=== PATIENT | male | born 2000 | race African-American/Black ===

== ENCOUNTER 2021-08-13 14:02 | Inpatient (IN) | payer MEDICARE, OTHER ==
[~2021-08-13] VITALS: Ht 185.4 cm; Wt 155.7 kg
[2021-08-13] MEDS ORDERED: IV NORMAL SALINE 1000ML BAG 1,000 ML IV ONE ×4 (15:00→18:15)
--- NOTE | 2021-08-13 15:08 | RAD ---
EXAM: CHEST ONE VIEW. HISTORY: Chest pain. COMPARISON: None. FINDINGS: A frontal view of the chest is obtained. There are no confluent infiltrates. There is no pneumothorax or pleural effusion. The heart is not en larged. IMPRESSION: 1. No confluent infiltrates. Electronically signed by: Ele Fitzpatrick MD (08/13/2021 3:06 PM) [id number]
[2021-08-13 15:42] LABS: BASO # 0.1 x10^3/uL (0.0-0.2); BASO % 1 % (0-3); EOS % 0 % (0-3); HEMATOCRIT 50.3 % (39.0-53.0); LYMPH # 1.3 x10^3/uL (1.0-4.8); LYMPH % 14 % (24-48); MEAN CORPUSCULAR HEMOGLOBIN 31 pg (25-35); MEAN CORPUSCULAR HGB CONC 34 g/dL (31-37); MEAN CORPUSCULAR VOLUME 93 fL (79-100); MONO # 0.8 x10^3/uL (0.0-1.1); MONO % 8 % (0-9); NEUT # 7.3 x10^3/uL (1.8-7.7); NEUT % 77 % (31-73); PLATELET COUNT 184 x10^3/uL (140-400); RED BLOOD COUNT 5.42 x10^6/uL (4.30-5.70); RED CELL DISTRIBUTION WIDTH 13.6 % (11.5-14.5); WHITE BLOOD COUNT 9.5 x10^3/uL (4.0-11.0)
[2021-08-13 15:52] LABS: BARBITURATES NEG (NEG); BENZODIAZEPINES NEG (NEG); CANNABINOIDS NEG (NEG); COCAINE NEG (NEG); METHADONE NEG (NEG); OPIATES NEG (NEG); PHENCYCLIDINE NEG (NEG)
--- NOTE | 2021-08-13 15:54 | EKG ---
[facility] [address] [place] [address] Test Date: 2021-08-13 Test Time: 15:30:41 Pat Name: KATIE JACOBSON Department: Room: Gender: M Keg Varnisher: : 2000 Requested By: ROGER CASE Order Number: [id number] Reading MD: Aram Mack Measurements Intervals [place] Rate: 90 P: 38 VA: 126 QRS: 3 QRSD: 82 T: 2 QT: 328 QTc: 405 Interpretive Statements SINUS RHYTHM NORMAL ECG RI6.01 No previous ECG available for comparison Electronically Signed On 08-17-2021 21:42:51 CDT by Aram Mack
[2021-08-13 16:01] LABS: AMPHETAMINE/METHAMPHETAMINE NEG (NEG)
[2021-08-13 16:02] LABS: CALCIUM 9.3 mg/dL (8.5-10.1); CREATININE 1.1 mg/dL (0.7-1.3); GFR 101.3; POTASSIUM 4.1 mmol/L (3.5-5.1)
[2021-08-13 16:02] LABS: BACTERIA,URINE 0 /HPF (0-FEW); RBC,URINE OCC /HPF (0-2); WBC,URINE 0 /HPF (0-4)
[2021-08-13 16:16] LABS: ALBUMIN 4.4 g/dL (3.4-5.0); ALBUMIN/GLOBULIN RATIO 1.2 (1.0-1.7); TOTAL BILIRUBIN 0.9 mg/dL (0.2-1.0)
--- NOTE | 2021-08-13 17:53 | PHYS DOC ---
Past Medical History Past Surgical History: No Surgical History Smoking Status: Never Smoker Alcohol Use: Occasionally General Adult EDM: Chief Complaint: OTHER COMPLAINTS HPI: HPI: Patient is a 20 year old male with no significant medical history presented to the ED today complaining of bilateral biceps pain, symptoms began on Thursday afte r having an extensive workout session. Patient states he typically does not workout, but on Thursday he had his friend die designer workout with him and did extensive biceps and triceps work out session. He states since then he has had severe muscle pain specifically to his biceps. Review of Systems: Review of Systems: Constitutional: Denies fever or chills. [] Eyes: Denies change in visual acuity. [] HENT: Denies nasal congestion or sore throat. [] Respiratory: Denies cough or shortness of breath. [] Cardiovascular: Denies chest pain or edema. [] GI: Denies abdominal pain, nausea, vomiting, bloody stools or diarrhea. [] : Denies dysuria. [] Musculoskeletal: Reports bilateral biceps pain. Denies back pain Integument: Denies rash. [] Neurologic: Denies headache, focal weakness or sensory changes. [] Psychiatric: Denies depression or anxiety. [] Heart Score: C/O Chest Pain: N/A (UA gets better every time I listened Ceccas is a chances she has not been anywhere please will start with a test) Risk Factors: Risk Factors: DM, Current or recent (<one month) smoker, HTN, HLP, family history of CAD, obesity. Risk Scores: Score 0 - 3: 2.5% MACE over next 6 weeks - Discharge Home Score 4 - 6: 20.3% MACE over next 6 weeks - Admit for Clinical Observation Score 7 - 10: 72.7% MACE over next 6 weeks - Early Invasive Strategies Current Medications: Current Medications Medications (Trade) Dose Ordered Sig/Bairon Start Time Stop Time Status Last Admin Dose Admin Sodium Chloride 1,000 ml @ 1,000 mls/hr 1X ONCE 08/13/21 17:30 08/13/21 18:29 08/13/21 17:45 1,000 MLS/HR Allergies: Allergies: Allergies Coded Allergies Type Severity Reaction Last Updated Verified No Known Drug Allergies 08/13/21 No Physical Exam: PE: Constitutional: Obese patient, no acute distress, non-toxic appearance. [] HENT: Normocephalic, atraumatic, bilateral external ears normal, oropharynx moist, no oral exudates, nose normal. [] Eyes: PERRLA, EOMI, conjunctiva normal, no discharge. [] Neck: Normal range of motion, no tenderness, supple, no stridor. [] Cardiovascular:Heart rate regular rhythm, no murmur [] Lungs & Thorax: Bilateral breath sounds clear to auscultation [] Abdomen: Bowel sounds normal, soft, no tenderness, no masses, no pulsatile masses. [] Skin: Warm, dry, no erythema, no rash. [] Back: No tenderness, no CVA tenderness. [] Extremities: Bilateral biceps are tight on exam, no cyanosis, no clubbing, ROM intact, no edema. +2 bilateral upper extremity radial pulses Neurologic: Alert and oriented X 3, normal motor function, normal sensory function, no focal deficits noted. [] Psychologic: Affect normal, judgement normal, mood normal. [] Current Patient Data: Labs: Laboratory Tests Test 08/13/21 15:00 08/13/21 15:30 Urine Color (Auto) Yellow Urine Turbidity Clear Urine pH (Auto) 5.5 (<5.0-8.0) Urine Specific [place] 1.028 (1.000-1.030) Urine Protein (Auto) 50 mg/dL (Negative) Urine Glucose (Auto)(UA) Negative mg/dL (Negative) Urine Ketones (Auto) Negative mg/dL (Negative) Urine Blood (Auto) Large (Negative) Urine Nitrite Negative (Negative) Urine Bilirubin (Auto) Negative (Negative) Urine Urobilinogen (Auto) Normal mg/dL (Normal) Urine Leukocyte Esterase (Auto) Negative (Negative) Urine RBC Occ /HPF (0-2) Urine WBC 0 /HPF (0-4) Urine Bacteria 0 /HPF (0-FEW) Urine Mucus Mod /LPF Urine Opiates Screen Neg (NEG) Urine Methadone Screen Neg (NEG) Urine Barbiturates Neg (NEG) Urine Phencyclidine Screen Neg (NEG) Urine Amphetamine/Methamphetamine Neg (NEG) Urine Benzodiazepines Screen Neg (NEG) Urine Cocaine Screen Neg (NEG) Urine Cannabinoids Screen Neg (NEG) Urine Ethyl Alcohol Neg (NEG) White Blood Count 9.5 x10^3/uL (4.0-11.0) Red Blood Count 5.42 x10^6/uL (4.30-5.70) Hemoglobin 17.0 g/dL (13.0-17.5) Hematocrit 50.3 % (39.0-53.0) Mean Corpuscular Volume 93 fL (79-100) Mean Corpuscular Hemoglobin 31 pg (25-35) Mean Corpuscular Hemoglobin Concent 34 g/dL (31-37) Red Cell Distribution Width 13.6 % (11.5-14.5) Platelet Count 184 x10^3/uL (140-400) Neutrophils (%) (Auto) 77 % (31-73) H Lymphocytes (%) (Auto) 14 % (24-48) L Monocytes (%) (Auto) 8 % (0-9) Eosinophils (%) (Auto) 0 % (0-3) Basophils (%) (Auto) 1 % (0-3) Neutrophils # (Auto) 7.3 x10^3/uL (1.8-7.7) Lymphocytes # (Auto) 1.3 x10^3/uL (1.0-4.8) Monocytes # (Auto) 0.8 x10^3/uL (0.0-1.1) Eosinophils # (Auto) 0.0 x10^3/uL (0.0-0.7) Basophils # (Auto) 0.1 x10^3/uL (0.0-0.2) Sodium Level 141 mmol/L (136-145) Potassium Level 4.1 mmol/L (3.5-5.1) Chloride Level 103 mmol/L (98-107) Carbon Dioxide Level 26 mmol/L (21-32) Anion Gap 12 (6-14) Blood Urea Nitrogen 11 mg/dL (8-26) Creatinine 1.1 mg/dL (0.7-1.3) Estimated GFR (Cockcroft-Gault) 101.3 BUN/Creatinine Ratio 10 (6-20) Glucose Level 94 mg/dL (70-99) Calcium Level 9.3 mg/dL (8.5-10.1) Magnesium Level 2.0 mg/dL (1.8-2.4) Total Bilirubin 0.9 mg/dL (0.2-1.0) Aspartate Amino Transferase (AST) 974 U/L (15-37) H Alanine Aminotransferase (ALT) 337 U/L (16-63) H Alkaline Phosphatase 58 U/L (46-116) Creatine Kinase 77001 U/L (39-308) H Creatine Kinase MB (Mass) 7.3 ng/mL (0.0-3.6) H Creatine Kinase MB Relative Index 0.0 % (0-4) Troponin I High Sensitivity 34 ng/L (4-75) Total Protein 8.0 g/dL (6.4-8.2) Albumin 4.4 g/dL (3.4-5.0) Albumin/Globulin Ratio 1.2 (1.0-1.7) Laboratory Tests 08/13/21 15:30 Laboratory Tests 08/13/21 15:30 Vital Signs: Vital Signs Date Time Temp Pulse Resp B/P (MAP) Pulse Ox O2 Delivery O2 Flow Rate FiO2 08/13/21 14:56 98.0 103 18 174/102 (126) 97 Room Air 98.0 EKG: EKG: EKG interpreted by Dr. Tovar sinus rhythm heart rate 90 no STEMI [] Radiology/Procedures: Radiology/Procedures: []PROCEDURE: PORTABLE CHEST 1V EXAM: CHEST ONE VIEW. HISTORY: Chest pain. COMPARISON: None. FINDINGS: A frontal view of the chest is obtained. There are no confluent infiltrates. There is no pneumothorax or pleural effusion. The heart is not enlarged. IMPRESSION: 1. No confluent infiltrates. Electronically signed by: Ele Fitzpatrick MD (08/13/2021 3:06 PM) [id number] DICTATED and SIGNED BY: HIRAM FITZPATRICK MD DATE: 08/13/21 1505 Course & Med Decision Making: Course & Med Decision Making Pertinent Labs and Imaging studies reviewed. (See chart for details) This a 20-year-old male patient presented to the ED today complaining of bilateral biceps pain, symptoms began Thursday after doing an extensive workout session. Vitals on arrival to the ED temperature 98.0 heart rate 103 respiration 18 on r oom air, blood pressure 174/102, O2 sats 97%. CBC with no acute findings, CMP with AST of 974, ALT 337, ALK 58. CK 61,416 Patient was given IV fluids in the ED. Admitted with more IV fluids. Spoke with Dr. Gomez who accepted patient for admission Tenzin Disclaimer: Tenzin Disclaimer: This electronic medical record was generated, in whole or in part, using a voice recognition dictation system. Departure Departure Impression: Primary Impression: Rhabdomyolysis Qualified Codes: M62.82 - Rhabdomyolysis Disposition: ADMITTED INPATIENT Condition: STABLE Referrals: NO PCP (PCP) ROGER CASE APRN Aug 13, 2021 17:52
[2021-08-13] MEDS ORDERED: ACETAMINOPHEN 325 MG TABLET. PO PRN ×2 (18:15→19:30)
[2021-08-13] MEDS ORDERED: MORPHINE SULFATE 2 MG/ML INJ. IVP PRN (18:15)
[2021-08-13] MEDS ORDERED: ONDANSETRON PF 4 MG/2 ML VIAL. IVP PRN ×2 (18:15→19:30)
[2021-08-13 19:00] VITALS: BP 165/103
--- NOTE | 2021-08-13 19:27 | PDOC1 ---
History and Physical Date of Admission Date of Admission DATE: 08/13/21 TIME: 19:15 Identification/Chief Complaint Chief Complaint Rhabdomyolysis Source Source: Patient History of Present Illness History of Present Illness Patient is a 20-year-old male with no significant past medical history, who presents to the ED with complaints of bilateral arm pain. Patient is a rather large individual, and on Thursday began aggressively working out after not having any prior baseline for physical activity. Eventually he was evaluated at a urgent care clinic, who sent him to the ER for concerns of rhabdomyolysis. Labs here showed AST 1974, ALT 337, CK 61,416. He received 3 L of IV fluids in the ED. Will admit patient for further medical management. Past Medical History Past Medical History Vitiligo Past Surgical History Past Surgical History: No pertinent history Family History Family History: Coronary Artery Disease Social History Smoke: No ALCOHOL: occassional Drugs: None Current Problem List Problem List Problems Medical Problems: (1) Rhabdomyolysis Status: Acute Current Medications Current Medications Current Medications Sodium Chloride 1,000 ml @ 1,000 mls/hr 1X ONCE IV Last administered on 08/13/21at 15:30; Start 08/13/21 at 15:00; Stop 08/13/21 at 15:59; Status DC Sodium Chloride 1,000 ml @ 1,000 mls/hr 1X ONCE IV Last administered on 08/13/21at 17:45; Start 08/13/21 at 17:30; Stop 08/13/21 at 18:29; Status DC Sodium Chloride 1,000 ml @ 1,000 mls/hr 1X ONCE IV Last administered on 08/13/21at 17:45; Start 08/13/21 at 17:30; Stop 08/13/21 at 18:29; Status DC Ondansetron HCl (Zofran) 4 mg PRN Q8HRS PRN IVP NAUSEA/VOMITING; Start 08/13/21 at 18:15; Stop 08/14/21 at 18:14 Morphine Sulfate (Morphine Sulfate) 2 mg PRN Q2HR PRN IVP PAIN; Start 08/13/21 at 18:15; Stop 08/14/21 at 18:14 Acetaminophen (Tylenol) 650 mg PRN Q4HRS PRN PO FEVER > 100.3'F; Start 08/13/21 at 18:15; Stop 08/14/21 at 18:14 Sodium Chloride 1,000 ml @ 125 mls/hr 1X ONCE IV ; Start 08/13/21 at 18:15; Stop 08/14/21 at 02:14 Allergies Allergies: Coded Allergies: No Known Drug Allergies (Unverified , 08/13/21) ROS Review of System GENERAL: No history of weight change, weakness or fevers. SKIN: No bruising, hair changes or rashes. EYES: No blurred, double or loss of vision. NOSE AND THROAT: No history of nosebleeds, hoarseness or sore throat. HEART: Denies chest pain, denies palpitations. LUNGS: Denies cough, hemoptysis, wheezing or shortness of breath. GASTROINTESTINAL: Denies nausea, vomiting, abdominal pain. GENITOURINARY: Denies dysuria, frequency, urgency, hematuria. NEUROLOGIC: Denies history of numbness, tingling, tremor or weakness. PSYCHIATRIC: Denies anxiety, denies depression. ENDOCRINE: No history of heat or cold intolerance, polyuria or polydipsia. EXTREMITIES: Bilateral upper extremity pain and weakness. Denies joint pain, pain on walking or stiffness. Physical Exam Physical Exam General: Alert, Oriented X3, Cooperative, No acute distress. Morbidly obese. HEENT: PERRLA, EOMI Lungs: Clear to auscultation, Normal air movement Heart: RRR, no murmurs Cardiovascular: S1, S2 Abdomen: Normal bowel sounds, Soft, No tenderness Extremities: No clubbing, No cyanosis Skin: No rashes, No significant lesion Neuro: Normal speech, Normal tone, Sensation intact Psych/Mental Status: Mental status NL, Mood NL Vitals Vitals Vital Signs Date Time Temp Pulse Resp B/P (MAP) Pulse Ox O2 Delivery O2 Flow Rate FiO2 08/13/21 17:43 94 171/100 (123) 99 Room Air 08/13/21 14:56 98.0 18 98.0 Labs Labs Laboratory Tests Test 08/13/21 15:00 08/13/21 15:30 Urine Color (Auto) Yellow Urine Turbidity Clear Urine pH (Auto) 5.5 (<5.0-8.0) Urine Specific [place] 1.028 (1.000-1.030) Urine Protein (Auto) 50 mg/dL (Negative) Urine Glucose (Auto)(UA) Negative mg/dL (Negative) Urine Ketones (Auto) Negative mg/dL (Negative) Urine Blood (Auto) Large (Negative) Urine Nitrite Negative (Negative) Urine Bilirubin (Auto) Negative (Negative) Urine Urobilinogen (Auto) Normal mg/dL (Normal) Urine Leukocyte Esterase (Auto) Negative (Negative) Urine RBC Occ /HPF (0-2) Urine WBC 0 /HPF (0-4) Urine Bacteria 0 /HPF (0-FEW) Urine Mucus Mod /LPF Urine Opiates Screen Neg (NEG) Urine Methadone Screen Neg (NEG) Urine Barbiturates Neg (NEG) Urine Phencyclidine Screen Neg (NEG) Urine Amphetamine/Methamphetamine Neg (NEG) Urine Benzodiazepines Screen Neg (NEG) Urine Cocaine Screen Neg (NEG) Urine Cannabinoids Screen Neg (NEG) Urine Ethyl Alcohol Neg (NEG) White Blood Count 9.5 x10^3/uL (4.0-11.0) Red Blood Count 5.42 x10^6/uL (4.30-5.70) Hemoglobin 17.0 g/dL (13.0-17.5) Hematocrit 50.3 % (39.0-53.0) Mean Corpuscular Volume 93 fL (79-100) Mean Corpuscular Hemoglobin 31 pg (25-35) Mean Corpuscular Hemoglobin Concent 34 g/dL (31-37) Red Cell Distribution Width 13.6 % (11.5-14.5) Platelet Count 184 x10^3/uL (140-400) Neutrophils (%) (Auto) 77 % (31-73) Lymphocytes (%) (Auto) 14 % (24-48) Monocytes (%) (Auto) 8 % (0-9) Eosinophils (%) (Auto) 0 % (0-3) Basophils (%) (Auto) 1 % (0-3) Neutrophils # (Auto) 7.3 x10^3/uL (1.8-7.7) Lymphocytes # (Auto) 1.3 x10^3/uL (1.0-4.8) Monocytes # (Auto) 0.8 x10^3/uL (0.0-1.1) Eosinophils # (Auto) 0.0 x10^3/uL (0.0-0.7) Basophils # (Auto) 0.1 x10^3/uL (0.0-0.2) Sodium Level 141 mmol/L (136-145) Potassium Level 4.1 mmol/L (3.5-5.1) Chloride Level 103 mmol/L (98-107) Carbon Dioxide Level 26 mmol/L (21-32) Anion Gap 12 (6-14) Blood Urea Nitrogen 11 mg/dL (8-26) Creatinine 1.1 mg/dL (0.7-1.3) Estimated GFR (Cockcroft-Gault) 101.3 BUN/Creatinine Ratio 10 (6-20) Glucose Level 94 mg/dL (70-99) Calcium Level 9.3 mg/dL (8.5-10.1) Magnesium Level 2.0 mg/dL (1.8-2.4) Total Bilirubin 0.9 mg/dL (0.2-1.0) Aspartate Amino Transf (AST/SGOT) 974 U/L (15-37) Alanine Aminotransferase (ALT/SGPT) 337 U/L (16-63) Alkaline Phosphatase 58 U/L (46-116) Creatine Kinase 91947 U/L (39-308) Creatine Kinase MB (Mass) 7.3 ng/mL (0.0-3.6) Creatine Kinase MB Relative Index 0.0 % (0-4) Troponin I High Sensitivity 34 ng/L (4-75) Total Protein 8.0 g/dL (6.4-8.2) Albumin 4.4 g/dL (3.4-5.0) Albumin/Globulin Ratio 1.2 (1.0-1.7) Laboratory Tests Test 08/13/21 15:00 08/13/21 15:30 Urine Color (Auto) Yellow Urine Turbidity Clear Urine pH (Auto) 5.5 (<5.0-8.0) Urine Specific [place] 1.028 (1.000-1.030) Urine Protein (Auto) 50 mg/dL (Negative) Urine Glucose (Auto)(UA) Negative mg/dL (Negative) Urine Ketones (Auto) Negative mg/dL (Negative) Urine Blood (Auto) Large (Negative) Urine Nitrite Negative (Negative) Urine Bilirubin (Auto) Negative (Negative) Urine Urobilinogen (Auto) Normal mg/dL (Normal) Urine Leukocyte Esterase (Auto) Negative (Negative) Urine RBC Occ /HPF (0-2) Urine WBC 0 /HPF (0-4) Urine Bacteria 0 /HPF (0-FEW) Urine Mucus Mod /LPF Urine Opiates Screen Neg (NEG) Urine Methadone Screen Neg (NEG) Urine Barbiturates Neg (NEG) Urine Phencyclidine Screen Neg (NEG) Urine Amphetamine/Methamphetamine Neg (NEG) Urine Benzodiazepines Screen Neg (NEG) Urine Cocaine Screen Neg (NEG) Urine Cannabinoids Screen Neg (NEG) Urine Ethyl Alcohol Neg (NEG) White Blood Count 9.5 x10^3/uL (4.0-11.0) Red Blood Count 5.42 x10^6/uL (4.30-5.70) Hemoglobin 17.0 g/dL (13.0-17.5) Hematocrit 50.3 % (39.0-53.0) Mean Corpuscular Volume 93 fL (79-100) Mean Corpuscular Hemoglobin 31 pg (25-35) Mean Corpuscular Hemoglobin Concent 34 g/dL (31-37) Red Cell Distribution Width 13.6 % (11.5-14.5) Platelet Count 184 x10^3/uL (140-400) Neutrophils (%) (Auto) 77 % (31-73) Lymphocytes (%) (Auto) 14 % (24-48) Monocytes (%) (Auto) 8 % (0-9) Eosinophils (%) (Auto) 0 % (0-3) Basophils (%) (Auto) 1 % (0-3) Neutrophils # (Auto) 7.3 x10^3/uL (1.8-7.7) Lymphocytes # (Auto) 1.3 x10^3/uL (1.0-4.8) Monocytes # (Auto) 0.8 x10^3/uL (0.0-1.1) Eosinophils # (Auto) 0.0 x10^3/uL (0.0-0.7) Basophils # (Auto) 0.1 x10^3/uL (0.0-0.2) Sodium Level 141 mmol/L (136-145) Potassium Level 4.1 mmol/L (3.5-5.1) Chloride Level 103 mmol/L (98-107) Carbon Dioxide Level 26 mmol/L (21-32) Anion Gap 12 (6-14) Blood Urea Nitrogen 11 mg/dL (8-26) Creatinine 1.1 mg/dL (0.7-1.3) Estimated GFR (Cockcroft-Gault) 101.3 BUN/Creatinine Ratio 10 (6-20) Glucose Level 94 mg/dL (70-99) Calcium Level 9.3 mg/dL (8.5-10.1) Magnesium Level 2.0 mg/dL (1.8-2.4) Total Bilirubin 0.9 mg/dL (0.2-1.0) Aspartate Amino Transf (AST/SGOT) 974 U/L (15-37) Alanine Aminotransferase (ALT/SGPT) 337 U/L (16-63) Alkaline Phosphatase 58 U/L (46-116) Creatine Kinase 01353 U/L (39-308) Creatine Kinase MB (Mass) 7.3 ng/mL (0.0-3.6) Creatine Kinase MB Relative Index 0.0 % (0-4) Troponin I High Sensitivity 34 ng/L (4-75) Total Protein 8.0 g/dL (6.4-8.2) Albumin 4.4 g/dL (3.4-5.0) Albumin/Globulin Ratio 1.2 (1.0-1.7) Images Images PATIENT: KATIE JACOBSON ACCOUNT: [id number] : 2000 LOCATION: ER AGE: 20 SEX: M EXAM STATUS: REG ER ORD. PHYSICIAN: ROGER CASE APRN REASON: muscle pain PROCEDURE: PORTABLE CHEST 1V EXAM: CHEST ONE VIEW. HISTORY: Chest pain. COMPARISON: None. FINDINGS: A frontal view of the chest is obtained. There are no confluent infiltrates. There is no pneumothorax or pleural effusion. The heart is not enlarged. IMPRESSION: 1. No confluent infiltrates. VTE Prophylaxis Ordered VTE Prophylaxis Devices: Yes VTE Pharmacological Prophylaxi: No Assessment/Plan Assessment/Plan Rhabdomyolysis Transaminitis Plan: Patient received 3 L IV fluids in the ED We will continue IV fluids at 200 cc/h Repeat CK in morning, and patient will hopefully be able to discharge after improvement of CK. FEN - regular diet PPX - ambulatory FULL CODE Dispo - Obsorvation for above Justifications for Admission Other Justification TJ OBREGON MD Aug 13, 2021 19:27
[2021-08-13] MEDS ORDERED: MAG HYDROX/ALUMINUM HYD/SIMETH 30 ML ORAL.SUSP PO PRN (19:30)
[2021-08-13] MEDS ORDERED: HYDROcodone/APAP 5/325MG 1 TAB TABLET PO PRN (19:30)
[2021-08-13] MEDS ORDERED: IBUPROFEN 400 MG TABLET. PO PRN (19:30)
[2021-08-13] MEDS ORDERED: ZOLPIDEM 5 MG TABLET. PO PRN (19:30)
[2021-08-13] MEDS ORDERED: CALCIUM CARBONATE 500 MG TAB.CHEW PO PRN (19:30)
[2021-08-13] MEDS: IV NORMAL SALINE 1000ML BAG 1,000 ML IV SCH (20:25)
[2021-08-13 23:00] VITALS: BP 155/103
[2021-08-14] MEDS: IV NORMAL SALINE 1000ML BAG 1,000 ML IV SCH ×5 (01:08→20:25)
[2021-08-14 03:00] VITALS: BP 140/86
[2021-08-14 06:10] LABS: BASO % 0 % (0-3); EOS % 0 % (0-3); HEMATOCRIT 46.1 % (39.0-53.0); HEMOGLOBIN 15.3 g/dL (13.0-17.5); LYMPH # 1.3 x10^3/uL (1.0-4.8); LYMPH % 14 % (24-48); MEAN CORPUSCULAR HEMOGLOBIN 31 pg (25-35); MEAN CORPUSCULAR HGB CONC 33 g/dL (31-37); MEAN CORPUSCULAR VOLUME 93 fL (79-100); MONO # 0.8 x10^3/uL (0.0-1.1); MONO % 9 % (0-9); NEUT # 7.3 x10^3/uL (1.8-7.7); NEUT % 77 % (31-73); PLATELET COUNT 179 x10^3/uL (140-400); RED BLOOD COUNT 4.97 x10^6/uL (4.30-5.70); RED CELL DISTRIBUTION WIDTH 13.6 % (11.5-14.5); WHITE BLOOD COUNT 9.5 x10^3/uL (4.0-11.0)
[2021-08-14 06:48] LABS: ALBUMIN 3.6 g/dL (3.4-5.0); CALCIUM 8.6 mg/dL (8.5-10.1); GFR 113.1; TOTAL PROTEIN 7.2 g/dL (6.4-8.2)
[2021-08-14 07:00] VITALS: BP 163/111
[2021-08-14 11:00] VITALS: BP 169/103
--- NOTE | 2021-08-14 12:15 | PDOC ---
[employer] PROGRESS NOTE Date of Service DOS: DATE: 08/14/21 TIME: 11:59 Chief Complaint Chief Complaint Rhabdomyolysis Transaminitis History of Present Illness History of Present Illness 08/14/2021 Patient seen and examined extent discussed with RN Chart reviewed His CPK levels are coming down but still 58,000 His blood pressures are running high I added in [facility] Vitals/I&O Vitals/I&O: Vital Signs Date Time Temp Pulse Resp B/P (MAP) Pulse Ox O2 Delivery O2 Flow Rate FiO2 08/14/21 11:00 97.7 85 18 169/103 (125) 97 97.7 08/14/21 08:30 Room Air I & O 08/13/21 08/13/21 08/14/21 15:00 23:00 07:00 Intake Total 1000 ml Balance 1000 ml Physical Exam General: Alert Heart: Regular rate Lungs: Clear Abdomen: Normal bowel sounds Extremities: No clubbing Skin: No rashes Labs Labs: Laboratory Tests Test 08/13/21 15:00 08/13/21 15:30 08/14/21 05:40 Urine Color (Auto) Yellow Urine Turbidity Clear Urine pH (Auto) 5.5 (<5.0-8.0) Urine Specific [place] 1.028 (1.000-1.030) Urine Protein (Auto) 50 mg/dL (Negative) Urine Glucose (Auto)(UA) Negative mg/dL (Negative) Urine Ketones (Auto) Negative mg/dL (Negative) Urine Blood (Auto) Large (Negative) Urine Nitrite Negative (Negative) Urine Bilirubin (Auto) Negative (Negative) Urine Urobilinogen (Auto) Normal mg/dL (Normal) Urine Leukocyte Esterase (Auto) Negative (Negative) Urine RBC Occ /HPF (0-2) Urine WBC 0 /HPF (0-4) Urine Bacteria 0 /HPF (0-FEW) Urine Mucus Mod /LPF Urine Opiates Screen Neg (NEG) Urine Methadone Screen Neg (NEG) Urine Barbiturates Neg (NEG) Urine Phencyclidine Screen Neg (NEG) Urine Amphetamine/Methamphetamine Neg (NEG) Urine Benzodiazepines Screen Neg (NEG) Urine Cocaine Screen Neg (NEG) Urine Cannabinoids Screen Neg (NEG) Urine Ethyl Alcohol Neg (NEG) White Blood Count 9.5 x10^3/uL (4.0-11.0) 9.5 x10^3/uL (4.0-11.0) Red Blood Count 5.42 x10^6/uL (4.30-5.70) 4.97 x10^6/uL (4.30-5.70) Hemoglobin 17.0 g/dL (13.0-17.5) 15.3 g/dL (13.0-17.5) Hematocrit 50.3 % (39.0-53.0) 46.1 % (39.0-53.0) Mean Corpuscular Volume 93 fL (79-100) 93 fL (79-100) Mean Corpuscular Hemoglobin 31 pg (25-35) 31 pg (25-35) Mean Corpuscular Hemoglobin Concent 34 g/dL (31-37) 33 g/dL (31-37) Red Cell Distribution Width 13.6 % (11.5-14.5) 13.6 % (11.5-14.5) Platelet Count 184 x10^3/uL (140-400) 179 x10^3/uL (140-400) Neutrophils (%) (Auto) 77 % (31-73) 77 % (31-73) Lymphocytes (%) (Auto) 14 % (24-48) 14 % (24-48) Monocytes (%) (Auto) 8 % (0-9) 9 % (0-9) Eosinophils (%) (Auto) 0 % (0-3) 0 % (0-3) Basophils (%) (Auto) 1 % (0-3) 0 % (0-3) Neutrophils # (Auto) 7.3 x10^3/uL (1.8-7.7) 7.3 x10^3/uL (1.8-7.7) Lymphocytes # (Auto) 1.3 x10^3/uL (1.0-4.8) 1.3 x10^3/uL (1.0-4.8) Monocytes # (Auto) 0.8 x10^3/uL (0.0-1.1) 0.8 x10^3/uL (0.0-1.1) Eosinophils # (Auto) 0.0 x10^3/uL (0.0-0.7) 0.0 x10^3/uL (0.0-0.7) Basophils # (Auto) 0.1 x10^3/uL (0.0-0.2) 0.0 x10^3/uL (0.0-0.2) Sodium Level 141 mmol/L (136-145) 140 mmol/L (136-145) Potassium Level 4.1 mmol/L (3.5-5.1) 4.0 mmol/L (3.5-5.1) Chloride Level 103 mmol/L (98-107) 105 mmol/L (98-107) Carbon Dioxide Level 26 mmol/L (21-32) 25 mmol/L (21-32) Anion Gap 12 (6-14) 10 (6-14) Blood Urea Nitrogen 11 mg/dL (8-26) 7 mg/dL (8-26) Creatinine 1.1 mg/dL (0.7-1.3) 1.0 mg/dL (0.7-1.3) Estimated GFR (Cockcroft-Gault) 101.3 113.1 BUN/Creatinine Ratio 10 (6-20) 7 (6-20) Glucose Level 94 mg/dL (70-99) 91 mg/dL (70-99) Calcium Level 9.3 mg/dL (8.5-10.1) 8.6 mg/dL (8.5-10.1) Magnesium Level 2.0 mg/dL (1.8-2.4) Total Bilirubin 0.9 mg/dL (0.2-1.0) 1.0 mg/dL (0.2-1.0) Aspartate Amino Transf (AST/SGOT) 974 U/L (15-37) 973 U/L (15-37) Alanine Aminotransferase (ALT/SGPT) 337 U/L (16-63) 336 U/L (16-63) Alkaline Phosphatase 58 U/L (46-116) 45 U/L (46-116) Creatine Kinase 07225 U/L (39-308) 72864 U/L (39-308) Creatine Kinase MB (Mass) 7.3 ng/mL (0.0-3.6) Creatine Kinase MB Relative Index 0.0 % (0-4) Troponin I High Sensitivity 34 ng/L (4-75) Total Protein 8.0 g/dL (6.4-8.2) 7.2 g/dL (6.4-8.2) Albumin 4.4 g/dL (3.4-5.0) 3.6 g/dL (3.4-5.0) Albumin/Globulin Ratio 1.2 (1.0-1.7) 1.0 (1.0-1.7) Assessment and Plan Assessmemt and Plan Problems Medical Problems: (1) Rhabdomyolysis Status: Acute Rhabdomyolysis Transaminitis Hypertension History of vertigo Plan I added in [facility] Continue IV fluids Trend CPK levels Home meds DVT prophylaxis Full code Hope to discharge once his CPK level is within reasonable range Comment Review of Relevant I have reviewed the following items lani (where applicable) has been applied. Medications: Current Medications Medications (Trade) Dose Ordered Sig/Bairon Route PRN Reason Start Time Stop Time Status Last Admin Dose Admin Sodium Chloride 1,000 ml @ 1,000 mls/hr 1X ONCE IV 08/13/21 15:00 08/13/21 15:59 DC 08/13/21 15:30 Sodium Chloride 1,000 ml @ 1,000 mls/hr 1X ONCE IV 08/13/21 17:30 08/13/21 18:29 DC 08/13/21 17:45 Sodium Chloride 1,000 ml @ 1,000 mls/hr 1X ONCE IV 08/13/21 17:30 08/13/21 18:29 DC 08/13/21 17:45 Sodium Chloride 1,000 ml @ 200 mls/hr Q5H IV 08/13/21 20:00 08/14/21 05:30 Justifications for Admission Other Justification KATHERINE PDAILLA III DO Aug 14, 2021 12:15
[2021-08-14 15:00] VITALS: BP 152/98
[2021-08-14 19:00] VITALS: BP 152/92
[2021-08-14 23:00] VITALS: BP 149/99
[2021-08-15] MEDS: IV NORMAL SALINE 1000ML BAG 1,000 ML IV SCH ×5 (01:05→20:44)
[2021-08-15 03:00] VITALS: BP 128/84
[2021-08-15 07:00] VITALS: BP 147/97
[2021-08-15 11:00] VITALS: BP 151/107
--- NOTE | 2021-08-15 13:08 | PDOC ---
[employer] PROGRESS NOTE Date of Service DOS: DATE: 08/15/21 TIME: 13:06 Chief Complaint Chief Complaint Rhabdomyolysis Transaminitis History of Present Illness History of Present Illness 08/15/2021: Patient seen with mother at bedside. His CK actually went up today, 63,606. States he does not take a statin or any protein supplements. Continue with IV fluids at 200 cc. Continue to monitor CK. 08/14/2021 Patient seen and examined extent discussed with RN Chart reviewed His CPK levels are coming down but still 58,000 His blood pressures are running high I added in [facility] Vitals/I&O Vitals/I&O: Vital Signs Date Time Temp Pulse Resp B/P (MAP) Pulse Ox O2 Delivery O2 Flow Rate FiO2 08/15/21 11:00 98.7 88 17 151/107 (122) 98 Room Air 98.7 I & O 08/14/21 08/14/21 08/15/21 15:00 23:00 07:00 Intake Total 500 ml 100 ml 100 ml Balance 500 ml 100 ml 100 ml Physical Exam General: Alert, Oriented X3, Cooperative Heart: Regular rate Lungs: Clear Abdomen: Normal bowel sounds Extremities: No clubbing Skin: No rashes Labs Labs: Laboratory Tests Test 08/15/21 04:35 Creatine Kinase 11674 U/L (39-308) Assessment and Plan Assessmemt and Plan Problems Medical Problems: (1) Rhabdomyolysis Status: Acute Comment Review of Relevant I have reviewed the following items lani (where applicable) has been applied. Justifications for Admission Other Justification TJ OBREGON MD Aug 15, 2021 13:07
--- NOTE | 2021-08-15 14:15 | NUR ---
SS following for discharge planning. SS reviewed pt chart. Pt is from home and is currently on room air. Discharge plan is currently to home when medically ready for discharge. SS will continue to follow for discharge planning.
[2021-08-15 15:00] VITALS: BP 136/81
[2021-08-15 19:00] VITALS: BP 180/122
[2021-08-15 22:51] VITALS: BP 146/90
[2021-08-16] MEDS: IV NORMAL SALINE 1000ML BAG 1,000 ML IV SCH ×5 (02:12→23:00)
[2021-08-16 03:11] VITALS: BP 145/91
[2021-08-16 06:07] LABS: CALCIUM 9.3 mg/dL (8.5-10.1); GFR 113.1; POTASSIUM 3.9 mmol/L (3.5-5.1)
[2021-08-16 07:00] VITALS: BP 140/92
[2021-08-16 11:00] VITALS: BP 125/79
--- NOTE | 2021-08-16 14:47 | PDOC ---
[employer] PROGRESS NOTE Date of Service DOS: DATE: 08/16/21 TIME: 14:45 Chief Complaint Chief Complaint Rhabdomyolysis Transaminitis History of Present Illness History of Present Illness 08/16: Patient seen and evaluated with family at bedside. No complaints. He is pain constantly. CK 47,565. Discussed with patient, once his CK is around 10,000 I will feel comfortable discharging him at that point. 08/15/2021: Patient seen with mother at bedside. His CK actually went up today, 63,606. States he does not take a statin or any protein supplements. Continue with IV fluids at 200 cc. Continue to monitor CK. 08/14/2021 Patient seen and examined extent discussed with RN Chart reviewed His CPK levels are coming down but still 58,000 His blood pressures are running high I added in [facility][1] Vitals/I&O Vitals/I&O: Vital Signs Date Time Temp Pulse Resp B/P (MAP) Pulse Ox O2 Delivery O2 Flow Rate FiO2 08/16/21 11:00 98.1 88 19 125/79 (94) 97 Room Air 98.1 I & O 0 08/15/21 08/15/21 08/16/21 15:00 23:00 07:00 Intake Total 600 ml 240 ml Output Total 2000 ml Balance 600 ml -1760 ml Physical Exam General: Alert, Oriented X3, Cooperative Heart: Regular rate Lungs: Clear Abdomen: Normal bowel sounds Extremities: No clubbing Skin: No rashes Labs Labs: Laboratory Tests Test 08/16/21 05:20 Sodium Level 138 mmol/L (136-145) Potassium Level 3.9 mmol/L (3.5-5.1) Chloride Level 104 mmol/L (98-107) Carbon Dioxide Level 28 mmol/L (21-32) Anion Gap 6 (6-14) Blood Urea Nitrogen 9 mg/dL (8-26) Creatinine 1.0 mg/dL (0.7-1.3) Estimated GFR (Cockcroft-Gault) 113.1 Glucose Level 92 mg/dL (70-99) Calcium Level 9.3 mg/dL (8.5-10.1) Creatine Kinase 40918 U/L (39-308) Assessment and Plan Assessmemt and Plan Problems Medical Problems: (1) Rhabdomyolysis Status: Acute Comment Review of Relevant I have reviewed the following items lani (where applicable) has been applied. Justifications for Admission Other Justification TJ OBREGON MD Aug 16, 2021 14:47
[2021-08-16 15:00] VITALS: BP 150/92
--- NOTE | 2021-08-16 16:43 | NUR ---
Nurse's Note: Report called to Celestina ASHLEY. The patient was transferred to [id number] via wheelchair on room air.
[2021-08-16 19:00] VITALS: BP 155/82
[2021-08-16 23:00] VITALS: BP 132/75
[2021-08-17 03:00] VITALS: BP 140/91
[2021-08-17] MEDS: IV NORMAL SALINE 1000ML BAG 1,000 ML IV SCH ×4 (04:00→22:30)
[2021-08-17 06:04] LABS: GFR 113.1; POTASSIUM 3.7 mmol/L (3.5-5.1)
[2021-08-17 07:00] VITALS: BP 143/90
[2021-08-17 11:19] VITALS: BP 161/99
[2021-08-17 15:20] VITALS: BP 152/70
[2021-08-17 19:40] VITALS: BP 137/86
--- NOTE | 2021-08-17 23:14 | PDOC ---
[employer] PROGRESS NOTE Date of Service DOS: DATE: 08/17/21 TIME: 23:13 Chief Complaint Chief Complaint Rhabdomyolysis Transaminitis History of Present Illness History of Present Illness 08/17 Patient evaluated and examined. Multiple family members at bedside explained to them clinical situation and. Patient said he was feeling great today. CK still around 20,000 and recheck in the morning if continues to trend down will plan for discharge tomorrow. 08/16: Patient seen and evaluated with family at bedside. No complaints. He is pain constantly. CK 47,565. Discussed with patient, once his CK is around 10,000 I will feel comfortable discharging him at that point. 08/15/2021: Patient seen with mother at bedside. His CK actually went up today, 63,606. States he does not take a statin or any protein supplements. Continue with IV fluids at 200 cc. Continue to monitor CK. 08/14/2021 Patient seen and examined extent discussed with RN Chart reviewed His CPK levels are coming down but still 58,000 His blood pressures are running high I added in [facility] Vitals/I&O Vitals/I&O: Vital Signs Date Time Temp Pulse Resp B/P (MAP) Pulse Ox O2 Delivery O2 Flow Rate FiO2 08/17/21 19:40 98.0 95 18 137/86 (103) 97 Room Air 98.0 I & O 08/16/21 08/16/21 08/17/21 15:00 23:00 07:00 Intake Total 600 ml 600 ml Output Total 2300 ml Balance -1700 ml 600 ml Physical Exam General: Alert, Oriented X3, Cooperative Heart: Regular rate Lungs: Clear Abdomen: Normal bowel sounds Extremities: No clubbing Skin: No rashes Labs Labs: Laboratory Tests Test 08/17/21 05:15 Sodium Level 140 mmol/L (136-145) Potassium Level 3.7 mmol/L (3.5-5.1) Chloride Level 105 mmol/L (98-107) Carbon Dioxide Level 28 mmol/L (21-32) Anion Gap 7 (6-14) Blood Urea Nitrogen 9 mg/dL (8-26) Creatinine 1.0 mg/dL (0.7-1.3) Estimated GFR (Cockcroft-Gault) 113.1 Glucose Level 87 mg/dL (70-99) Calcium Level 9.0 mg/dL (8.5-10.1) Creatine Kinase 59931 U/L (39-308) Assessment and Plan Assessmemt and Plan Problems Medical Problems: (1) Rhabdomyolysis Status: Acute Comment Review of Relevant I have reviewed the following items lani (where applicable) has been applied. Justifications for Admission Other Justification JARROD MORENO MD Aug 17, 2021 23:14
[2021-08-17 23:32] VITALS: BP 143/84
[2021-08-18 03:05] VITALS: BP 128/71
[2021-08-18] MEDS: IV NORMAL SALINE 1000ML BAG 1,000 ML IV SCH ×3 (05:00→10:12)
[2021-08-18 07:00] VITALS: BP 134/83
[2021-08-18 08:16] LABS: CALCIUM 9.1 mg/dL (8.5-10.1); GFR 113.1; POTASSIUM 3.6 mmol/L (3.5-5.1)
[2021-08-18] MEDS ORDERED: AMLO-187 PO (10:42)
[2021-08-18 11:00] VITALS: BP 146/95
--- NOTE | 2021-08-18 12:51 | NUR ---
Patient discharge home with self care today via ambulation, accompanied by this RN. Patient is stable, IV removed, and discharge paperwork given to patient. Patient verbalized understanding of followup and discharge instruction.
== END 2021-08-18 13:06 | disposition home or self-care (01) | DRG 558 ==
LOC: ER 14:02 → 2 NORTH 17:52 → 4 NORTH 08-16 16:39
PROVIDERS: ADMIT Family Medicine; ATTEND Family Medicine
DX: M62.82 Rhabdomyolysis (principal); Z68.42 Body mass index [BMI] 45.0-49.9, adult; I10 Essential (primary) hypertension; Z82.49 Family history of ischemic heart disease and other diseases of the circulatory system; R74.01 Elevation of levels of liver transaminase levels; E66.01 Morbid (severe) obesity due to excess calories
CPT/HCPCS: 36415; 71045; 80048; 80053; 80307; 81001; 82550; 82553; 83735; 84484; 85025; 93005; 96360; 96361; J7030; 99285-25; G0378